=== PATIENT | male | born 1965 | race Caucasian/White ===

== ENCOUNTER 2017-01-10 10:13 | Emergency (ER) | payer OTHER, SELFPAY ==
[~2017-01-10] VITALS: Ht 188 cm; Wt 93.1 kg
[2017-01-10 10:13] VITALS: BP 158/90
[2017-01-10] MEDS ORDERED: AMLO10TA2 (10:20)
[2017-01-10] MEDS ORDERED: ZOLO25TA PO (10:20)
[2017-01-10] MEDS ORDERED: IBUP-1022 PO (10:20)
[2017-01-10] MEDS ORDERED: KETOROLAC 60 MG/2 ML VIAL (J1885) IM ONE (10:45)
[2017-01-10] MEDS ORDERED: VALI5TAB PO (10:47)
[2017-01-10] MEDS ORDERED: NAPR500T PO (10:47)
== END 2017-01-10 11:08 | disposition home or self-care (01) ==
LOC: M ED 10:13
DX: M54.42 Lumbago with sciatica, left side (principal); X50.0XXA Overexertion from strenuous movement or load, initial encounter; Y92.89 Other specified places as the place of occurrence of the external cause; Y93.89 Activity, other specified; Y99.0 Civilian activity done for income or pay; I10 Essential (primary) hypertension; F41.9 Anxiety disorder, unspecified; F17.200 Nicotine dependence, unspecified, uncomplicated
CPT/HCPCS: 96372; 99282; J1885

== ENCOUNTER → 2022-01-09 | Outpatient (REF) | payer BC ==
[~2022-01-09] MED LIST: AMLO1TAB25; IBUP-1022 PO; NAPR-837 PO; VALI5TAB PO; ZOLO25TA PO
[2022-01-09 18:41] LABS: CREATININE, URINE 86.3 MG/DL; MALB URINE SIEMENS 11.4 MG/L; MAU/CREAT RATIO 13.2 MCG/MG (0.0-30.0)
== END ==
LOC: M LAB REF 16:50
PROVIDERS: ATTEND Nurse Practitioner Family
DX: E11.65 Type 2 diabetes mellitus with hyperglycemia (principal)

== ENCOUNTER → 2023-01-24 | Outpatient (CLI) | payer OTHER | LOC: M PLAIMG 14:38 | DX: M19.90 Unspecified osteoarthritis, unspecified site (principal) ==

== ENCOUNTER → 2024-12-07 | Outpatient (REF) | payer BC, OTHER ==
[2024-12-07 18:22] LABS: BASO # 0.0 10^3/uL (0.0-0.2); BASO % 0.2 % (0.0-1.0); EOS # 0.1 10^3/uL (0.0-0.5); EOS % 1.5 % (0.0-3.0); LYMPH # 1.4 10^3/uL (1.5-5.0); LYMPH % 16.5 % (24.0-44.0); MONO # 0.7 10^3/uL (0.0-0.8); MONO % 8.1 % (2.0-8.0); NEUTROPHILS # 6.2 10^3/uL (1.5-8.5); NEUTROPHILS % 73.5 % (36.0-66.0); PLATELET COUNT, AUTOMATED 131 10^3/uL (150-450)
[2024-12-07 18:36] LABS: PSA SCREENING 0.81 NG/ML (< 4.00)
[2024-12-07 18:38] LABS: ALT/SGPT 16 U/L (7.0-40); AST/SGOT 12 U/L (<34); CALCIUM LEVEL 10.0 MG/DL (8.5-10.1); CARBON DIOXIDE LEVEL 27 MMOL/L (20-31); CHLORIDE LEVEL 98 MMOL/L (98-107); CHOLESTEROL LEVEL 137 MG/DL (<200); CHOLESTEROL RISK RATIO 3.87 (<5); CREATININE FOR GFR 0.85 MG/DL (0.70-1.30); GLOMERULAR FILTRATION RATE > 90.0 (>56); LDL CHOLESTEROL 34.6 MG/DL (<100); NON-HDL-C 101.6 MG/DL; POTASSIUM SERUM 4.2 MMOL/L (3.5-5.1); SODIUM LEVEL 138 MMOL/L (136-145); TRIGLYCERIDES LEVEL 335 MG/DL (<150)
[2024-12-14 13:10] LABS: CREATININE, URINE 35.3 MG/DL
[2024-12-14 13:12] LABS: MALB URINE SIEMENS < 3.0 MG/L
== END ==
LOC: M LAB REF 16:53
PROVIDERS: ATTEND Nurse Practitioner Family
DX: E78.2 Mixed hyperlipidemia (principal); E11.9 Type 2 diabetes mellitus without complications; I10 Essential (primary) hypertension; Z12.5 Encounter for screening for malignant neoplasm of prostate
CPT/HCPCS: 80053; 80061; 82043; 85025; G0103